=== PATIENT | male | born 1995 | race African-American/Black ===

== ENCOUNTER 2018-10-30 10:43 | Emergency (ER) | payer SELFPAY ==
[~2018-10-30] VITALS: Ht 172.7 cm; Wt 70.0 kg
[2018-10-30] MEDS: SODIUM CHLORIDE 0.9% 1,000 ML IV ONE ×3 (11:10→11:57)
[2018-10-30] MEDS ORDERED: ONDANSETRON HCL 4MG/2ML INJ IV STA (11:10)
[2018-10-30] MEDS ORDERED: MAGNESIUM/ALUMINUM HYDROXIDE/SIMETHICONE 30ML UDC PO STA (11:10)
[2018-10-30 11:53] LABS: HEMOGLOBIN. 10.6 g/dL (14.0-18.0); MEAN CORPUSCULAR HEMOGLOBIN 23.5 pg (28.0-32.0); MEAN CORPUSCULAR VOLUME 68.4 fL (80.0-94.0); MEAN PLATELET VOLUME 9.1 fl (7.4-10.4); PLATELET 269 x1000/uL (130-400); RED BLOOD CELL COUNT 4.53 mill/uL (4.7-6.1); RED CELL DISTRIBUTION WIDTH 28.5 % (11.6-14.6)
[2018-10-30 11:59] LABS: CHLORIDE 106 mEq/L (98-107); INR 1.1; PROTHROMBIN TIME 11.5 sec (9.6-11.0)
[2018-10-30 12:06] LABS: NUCLEATED RED BLOOD CELLS 4 /100 WBC; PLATELET ESTIMATE NORMAL
[2018-10-30] MEDS ORDERED: IOHEXOL-300 100 ML BOTTLE ONE (12:24)
[2018-10-30] MEDS ORDERED: HYDROCODONE/ACETAMINOPHEN 5/325MG TABLET PO ONE (13:30)
[2018-10-30 13:40] VITALS: BP 118/74
== END 2018-10-30 13:40 | disposition home or self-care (01) ==
LOC: ER 10:43
DX: R10.13 Epigastric pain (principal); D57.00 Hb-SS disease with crisis, unspecified
CPT/HCPCS: 36415; 74177; 80053; 83690; 85025; 85044; 85610; 96374; 99284; J2405; J7030; Q9967

== ENCOUNTER 2019-03-21 13:13 | Emergency (ER) | payer MEDICAID ==
[~2019-03-21] VITALS: Ht 172.7 cm; Wt 71.0 kg
[2019-03-21 16:57] VITALS: BP 98/42
== END 2019-03-21 20:45 | disposition left against medical advice (07) ==
LOC: ER 13:15
DX: Z53.21 Procedure and treatment not carried out due to patient leaving prior to being seen by health care provider (principal)

== ENCOUNTER 2020-08-17 09:19 | Inpatient (IN) | payer MEDICAID, OTHER ==
[~2020-08-17] VITALS: Ht 175.3 cm; Wt 70.3 kg
[2020-08-17] MEDS ORDERED: ONDANSETRON HCL 4MG/2ML INJ IV STA (09:29)
[2020-08-17] MEDS ORDERED: MORPHINE SULFATE 4 MG/ML CPJ (NOT FOR IM USE) IV STA (09:29)
[2020-08-17] MEDS ORDERED: SODIUM CHLORIDE 0.9% 1,000 ML IV ONE (09:30)
[2020-08-17 10:00] LABS: HEMATOCRIT. 27.4 % (42.0-52.0); HEMOGLOBIN. 9.7 g/dL (14.0-18.0); MEAN CORPUSCULAR HEMOGLOBIN 25.2 pg (28.0-32.0); MEAN CORPUSCULAR VOLUME 71.1 fL (80.0-94.0); RED BLOOD CELL COUNT 3.85 mill/uL (4.7-6.1); RED CELL DISTRIBUTION WIDTH 30.2 % (11.6-14.6)
[2020-08-17 10:06] LABS: CHLORIDE 110 mEq/L (98-107)
[2020-08-17 10:08] LABS: INR 1.1; PROTHROMBIN TIME 11.8 sec (9.6-11.0)
[2020-08-17 10:12] LABS: ETHANOL BLOOD < 10 mg/dL
[2020-08-17 10:31] LABS: CLARITY URINE CLEAR (CLEAR); COLOR URINE YELLOW (YELLOW); KETONES URINE NEGATIVE (NEGATIVE); LEUKOCYTE ESTERASE URINE NEGATIVE (NEGATIVE); NITRITE URINE NEGATIVE (NEGATIVE); OCCULT BLOOD URINE TRACE (NEGATIVE); PH URINE 5.5 (4.5-8.0); PROTEIN URINE NEGATIVE (NEGATIVE); SPECIFIC GRAVITY URINE 1.014 (1.005-1.030); UROBILINOGEN URINE 0.2 E.U./dL (0.2-1.0)
[2020-08-17 10:41] LABS: *AMPHETAMINES SCREEN URINE NEGATIVE (NEGATIVE); *BARBITURATES SCREEN URINE NEGATIVE (NEGATIVE); *BENZODIAZEPINES SCREEN URINE NEGATIVE (NEGATIVE); *COCAINE SCREEN URINE NEGATIVE (NEGATIVE)
[2020-08-17 10:42] LABS: CANNABINOID URINE SCREEN PRESUMTIVE POSITIVE (NEGATIVE); METHADONE URINE SCREEN NEGATIVE (NEGATIVE); OPIATES URINE SCREEN PRESUMTIVE POSITIVE (NEGATIVE)
[2020-08-17 10:43] LABS: PHENCYCLIDINE URINE SCREEN NEGATIVE (NEGATIVE)
[2020-08-17] MEDS ORDERED: HYDROMORPHONE HCL/PF 2MG/ML CPJ IV ONE (11:30)
[2020-08-17 11:38] LABS: NUCLEATED RED BLOOD CELLS 1 /100 WBC; PLATELET ESTIMATE NORMAL
[2020-08-17 11:42] LABS: PLATELET 299 x1000/uL (130-400)
[2020-08-17] MEDS ORDERED: ASPIRIN 81MG TABLET PO ONE (12:45)
[2020-08-17] MEDS ORDERED: ACETAMINOPHEN 325MG TABLET PO PRN (13:30)
[2020-08-17] MEDS ORDERED: NITROGLYCERIN OINT 1GM/INCH UDPKT TD ONE (13:30)
[2020-08-17] MEDS ORDERED: ONDANSETRON HCL 4MG/2ML INJ IV PRN (13:30)
[2020-08-17] MEDS ORDERED: KETOROLAC 30MG/ML VIAL IV NR (14:45)
[2020-08-17] MEDS: HYDROCODONE/ACETAMINOPHEN 10/325MG TABLET PO PRN (17:04)
[2020-08-17] MEDS: SODIUM CHLORIDE 0.9% 1,000 ML IV SCH (17:30)
[2020-08-17] MEDS: MORPHINE SULFATE 2 MG/ML CPJ (NOT FOR IM USE) IV PRN ×2 (19:20→23:43)
[2020-08-18] VITALS (8 sets, daily range): BP systolic 92–116; BP diastolic 32–91
[2020-08-18] MEDS ORDERED: FOLI-43 MT (02:41)
[2020-08-18] MEDS ORDERED: MULT-1146 MT (02:41)
[2020-08-18] MEDS: HYDROCODONE/ACETAMINOPHEN 10/325MG TABLET PO PRN ×3 (04:02→19:31)
[2020-08-18] MEDS: MORPHINE SULFATE 2 MG/ML CPJ (NOT FOR IM USE) IV PRN ×4 (06:16→22:29)
[2020-08-18] MEDS: SODIUM CHLORIDE 0.9% 1,000 ML IV SCH ×2 (06:22→19:31)
[2020-08-18] MEDS: ASPIRIN 81MG TABLET PO SCH (09:55)
[2020-08-18] MEDS: FOLIC ACID 1MG TABLET PO SCH (09:55)
[2020-08-18 13:08] LABS: HEMATOCRIT. 23.1 % (42.0-52.0); HEMOGLOBIN. 8.3 g/dL (14.0-18.0); MEAN CORPUSCULAR HEMOGLOBIN 25.3 pg (28.0-32.0); MEAN CORPUSCULAR VOLUME 70.7 fL (80.0-94.0); MEAN PLATELET VOLUME 8.6 fl (7.4-10.4); PLATELET 260 x1000/uL (130-400); RED BLOOD CELL COUNT 3.26 mill/uL (4.7-6.1); RED CELL DISTRIBUTION WIDTH 30.1 % (11.6-14.6)
[2020-08-18 13:12] LABS: CHLORIDE 110 mEq/L (98-107)
[2020-08-18 15:56] LABS: NUCLEATED RED BLOOD CELLS 7 /100 WBC
[2020-08-18 15:57] LABS: PLATELET ESTIMATE NORMAL
[2020-08-19 00:37] VITALS: BP 98/59
[2020-08-19 04:00] VITALS: BP 101/52
[2020-08-19] MEDS: MORPHINE SULFATE 2 MG/ML CPJ (NOT FOR IM USE) IV PRN ×2 (06:53→12:07)
[2020-08-19 08:12] VITALS: BP 104/58
[2020-08-19] MEDS: ASPIRIN 81MG TABLET PO SCH (08:54)
[2020-08-19] MEDS: FOLIC ACID 1MG TABLET PO SCH (08:54)
[2020-08-19] MEDS: SODIUM CHLORIDE 0.9% 1,000 ML IV SCH (08:55)
[2020-08-19] MEDS: HYDROCODONE/ACETAMINOPHEN 10/325MG TABLET PO PRN ×2 (08:58→14:23)
[2020-08-19 12:03] VITALS: BP 113/66
[2020-08-19] MEDS ORDERED: HYDR-4009 MT (12:38)
[2020-08-19 14:43] VITALS: BP 113/62
== END 2020-08-19 15:55 | disposition home or self-care (01) | DRG 662 ==
LOC: ER 09:19 → EDBEDREQTM 13:13 → EDBEDREQ 13:13 → ENRESERV 21:18 → 6WST 23:18
PROVIDERS: ADMIT Internal Medicine; ATTEND Internal Medicine
DX: D57.00 Hb-SS disease with crisis, unspecified (principal); E87.5 Hyperkalemia; F12.90 Cannabis use, unspecified, uncomplicated; J45.909 Unspecified asthma, uncomplicated; I34.1 Nonrheumatic mitral (valve) prolapse; R74.01 Elevation of levels of liver transaminase levels; Z83.2 Family history of diseases of the blood and blood-forming organs and certain disorders involving the immune mechanism; Z79.899 Other long term (current) drug therapy
CPT/HCPCS: 36415; 71045; 80048; 80053; 80305; 80320; 81003; 83880; 84484; 85025; 85044; 86850; 86900; 93005; 93306; 99291; J1170; J1885; J2270; J2405; J7030; G0480